=== PATIENT | female | born 1945 | race Caucasian/White ===

== ENCOUNTER 2017-03-27 14:10 | Outpatient (CLI) | payer MEDICARE, BC ==
[2017-03-27 15:13] LABS: Anion Gap 10 mmol/L (10-20); BUN (Urea Nitrogen) 26 mg/dL (9.8-20.1); Calc. Creatinine Clearance 0 mL/min (70-130); Calcium 10.3 mg/dL (7.8-10.44); Carbon Dioxide 33 mmol/L (23-31); Chloride 100 mmol/L (98-107); Estimated GFR-MDRD 37; Glucose 110 mg/dL (80-115); Potassium 3.4 mmol/L (3.5-5.1); Sodium 140 mmol/L (136-145)
--- NOTE | 2017-03-27 15:20 | RAD ---
KUB: HISTORY: Malignant neoplasm of bladder, unspecified. FINDINGS: Comparison is made with the exam of 01/04/16. There is fecal material in the colon. No suspicious calcifications are seen. POS: [facility]
[2017-03-27 15:21] LABS: Bilirubin Negative (Negative); Blood, Urine Negative (Negative); Clarity CLEAR (Clear); Glucose, Urine (Dipstick) Negative (Negative); Leukocyte Negative (Negative); Nitrite Negative (Negative); Protein, Urine (Dipstick) Negative (Neg-Trace); Specific Gravity, Urine 1.021 (1.002-1.036); pH, Urine 6.5 (5.0-9.0)
[2017-03-27 15:23] LABS: Bacteria/HPF None Seen HPF (None Seen); Hyaline Casts/LPF 0-3 HYALINE CAST LPF (0-3 Hyaline); Pathc Cast-AUWi Flag 0.13 (0-2.49); RBC/HPF 0-3 HPF (0-3); Squamous Epithelial 0-3 HPF (0-3); WBC/HPF None Seen HPF (0-3)
== END 2017-03-27 14:11 | disposition home or self-care (01) ==
LOC: RAD 14:10
PROVIDERS: ATTEND Urology
DX: C67.9 Malignant neoplasm of bladder, unspecified (principal); N20.0 Calculus of kidney
CPT/HCPCS: 36415; 74018; 80048; 81001; 87086

== ENCOUNTER 2017-03-27 16:15 | Outpatient (CLI) | payer MEDICARE, BC | END 2017-03-27 16:16 | disposition home or self-care (01) | LOC: BICMAMMO 16:15 | PROVIDERS: ATTEND Internal Medicine | DX: Z12.31 Encounter for screening mammogram for malignant neoplasm of breast (principal); Z80.3 Family history of malignant neoplasm of breast | CPT/HCPCS: 77063; 77067 ==

== ENCOUNTER 2017-04-12 13:54 | Outpatient (CLI) | payer MEDICARE, BC ==
--- NOTE | 2017-04-12 16:08 | ULT ---
RENAL ULTRASOUND: HISTORY: Abnormal labs, followup cyst. Status post right nephrectomy. FINDINGS: The left kidney measures 13.3 cm in length without hydronephrosis. There are cysts in the left kidne y measuring 1.4 and 1.2 cm respectively. The parapelvic cyst noted on 09/14/16 is not seen on the curr ent exam. The urinary bladder volume measures 135 cc. IMPRESSION: 1. Status post right nephrectomy. 2. Left renal cyst. POS: [facility]
== END 2017-04-12 13:55 | disposition home or self-care (01) ==
LOC: ULT 13:54
PROVIDERS: ATTEND Urology
DX: N28.1 Cyst of kidney, acquired (principal); N28.9 Disorder of kidney and ureter, unspecified; Z90.6 Acquired absence of other parts of urinary tract; Z87.440 Personal history of urinary (tract) infections; Z90.5 Acquired absence of kidney
CPT/HCPCS: 76770

== ENCOUNTER 2017-11-22 10:46 | Outpatient (CLI) | payer MEDICARE, BC ==
--- NOTE | 2017-11-22 12:27 | ULT ---
BILATERAL LOWER EXTERMITY VENOUS DUPLEX EXAM: History: Left pain. Right leg edema. FINDINGS: Real-time color doppler evaluation of the right and left lower extremity were performed from groin to calf. This includes evaluation of the common femoral, superficial and profunda femoral, saphenous, p opliteal and trifurcation and posterior tibial veins. This shows patent deep venous systems bilateral ly. There is normal compressibility and augmentation. There is no evidence of DVT. IMPRESSION: No evidence of DVT of either lower extremity. POS: [facility]
== END 2017-11-22 10:47 | disposition home or self-care (01) ==
LOC: BICULT 10:46
PROVIDERS: ATTEND Internal Medicine
DX: R60.0 Localized edema (principal); I83.90 Asymptomatic varicose veins of unspecified lower extremity
CPT/HCPCS: 36415; 80048; 81001; 93970

== ENCOUNTER 2018-09-10 14:57 | Outpatient (CLI) | payer MEDICARE, BC ==
--- NOTE | 2018-09-10 15:25 | ULT ---
Exam: Renal ultrasound COMPARISON: 09/14/2016 HISTORY: Right nephrectomy. FINDINGS: Right renal fossa does not demonstrate any obvious masses Left kidney: Mild cortical thinning. Left kidney measurements: 5.2 x 12.8 x 5.6 cm. There is mild hydronephrosis Unremarkable urinary bladder. Bladder volume is 264 mL IMPRESSION: 1. Mild left-sided hydronephrosis 2. Surgically absent right kidney
--- NOTE | 2018-09-10 16:09 | RAD ---
SUPINE ABDOMEN: Indications: Urinary calculi. Post nephrectomy. Comparison: 03-27-17 FINDINGS: Stool and gas throughout the colon. Small bowel gas pattern is unremarkable. Radiopaque suture overli es the right abdomen consistent with the history of nephrectomy. No abnormal calcification. IMPRESSION: Unremarkable bowel gas pattern. POS: [facility]
== END 2018-09-10 14:58 | disposition home or self-care (01) ==
LOC: BICULT 14:57
PROVIDERS: ATTEND Urology
DX: N28.1 Cyst of kidney, acquired (principal); Z90.6 Acquired absence of other parts of urinary tract; Z90.5 Acquired absence of kidney; Z87.442 Personal history of urinary calculi; N13.30 Unspecified hydronephrosis; C67.9 Malignant neoplasm of bladder, unspecified; R30.0 Dysuria; Z87.440 Personal history of urinary (tract) infections
CPT/HCPCS: 74018; 76775; 81001; 87086; 88121

== ENCOUNTER 2018-11-26 15:22 | Outpatient (CLI) | payer MEDICARE, BC ==
--- NOTE | 2018-11-26 16:02 | RAD ---
Exam:3 views right ankle HISTORY: Pain. Edema. COMPARISON: None FINDINGS: Joint spaces are preserved. No fracture. No malalignment. Mild soft tissue swelling. IMPRESSION: Mild soft tissue swelling. No fracture.
--- NOTE | 2018-11-26 16:03 | RAD ---
Exam:3 views right foot HISTORY: Pain. Edema. COMPARISON: None FINDINGS: Lisfranc alignment is maintained. Joint spaces are. No fracture. No cortical irregularity o r periosteal reaction. Hypertrophy of the calcaneus at the insertion site of the plantar aponeurosis is noted. IMPRESSION: Unremarkable right foot 3 views.
== END 2018-11-26 15:23 | disposition home or self-care (01) ==
LOC: BICRAD 15:22
PROVIDERS: ATTEND Podiatrist
DX: M25.571 Pain in right ankle and joints of right foot (principal); R60.0 Localized edema; M79.671 Pain in right foot; M79.89 Other specified soft tissue disorders

== ENCOUNTER 2019-07-27 14:35 | Emergency (ER) | payer MEDICARE, OTHER ==
[2019-07-27] MEDS ORDERED: Aspirin Chewable 81 MG TAB ONE (15:41)
== END 2019-07-27 17:25 | disposition left against medical advice (07) ==
LOC: ERS 14:35
DX: G45.4 Transient global amnesia (principal); Z86.73 Personal history of transient ischemic attack (TIA), and cerebral infarction without residual deficits
CPT/HCPCS: 36415; 82140; 82550; 84443; 93005; 96360

== ENCOUNTER 2022-05-03 08:03 | Outpatient (CLI) | payer MEDICARE, OTHER | END 2022-05-03 08:04 | disposition home or self-care (01) | LOC: BICCT 08:03 | PROVIDERS: ATTEND Urology | DX: R10.9 Unspecified abdominal pain (principal); N28.1 Cyst of kidney, acquired; N20.0 Calculus of kidney; Z87.440 Personal history of urinary (tract) infections | CPT/HCPCS: 74176 ==

== ENCOUNTER 2022-08-31 10:20 | Outpatient (CLI) | payer MEDICARE, OTHER | END 2022-08-31 10:21 | disposition home or self-care (01) | LOC: BICMRI 10:20 | PROVIDERS: ATTEND Orthopaedic Surgery | DX: M47.26 Other spondylosis with radiculopathy, lumbar region (principal); M51.16 Intervertebral disc disorders with radiculopathy, lumbar region | CPT/HCPCS: 72148 ==